=== PATIENT | female | born 1960 | race Caucasian/White ===

== ENCOUNTER → 2020-04-09 09:21 | Outpatient (CLI) | payer OTHER, SELFPAY ==
--- NOTE | ~2020-04-09 | MM_ITS ---
EXAMINATION: MM screening [facility] BI w lucinda HISTORY: Screening mammogram TECHNIQUE: Craniocaudal and mediolateral oblique 3-D tomosynthesis images were obtained and synthetic 2-D images were generated. CAD analysis was submitted and interpreted. COMPARISON: 02/20/2019, 01/17/2018, 12/07/2016 bilateral digital screening mammogram examinations BREAST PARENCHYMAL COMPOSITION: There are scattered areas of fibroglandular density. FINDINGS: There is no evidence of suspicious mass, calcification, or architectural distortion to sugg est malignancy in either breast. There has been no suspicious interval change. IMPRESSION: 1. No mammographic evidence of malignancy. 2. Recommend routine screening mammography in one year. BI-RADS Category 1: Negative Reviewed, dictated and finalized at location A. ED STRAND OPERATOR
== END ==
PROVIDERS: Visit Provider Nurse Practitioner
DX: Z12.31 Encounter for screening mammogram for malignant neoplasm of breast (principal)
CPT/HCPCS: 77063; 77067

== ENCOUNTER → 2020-04-29 03:22 | Outpatient (CLI) | payer OTHER, SELFPAY ==
[2020-04-29 18:10] LABS: SARS-CoV-2 RNA PCR Negative
== END ==
PROVIDERS: PCP Internal Medicine; Visit Provider Obstetrics & Gynecology Gynecology
DX: Z01.812 Encounter for preprocedural laboratory examination (principal); Z20.822 Contact with and (suspected) exposure to COVID-19
CPT/HCPCS: C9803; U0003; U0005

== ENCOUNTER 2020-05-02 01:24 | Day surgery (SDC) | payer OTHER, SELFPAY ==
[2020-04-26 13:59] VITALS: BMI 29.2
--- NOTE | 2020-05-02 07:39 | P.HP_ITS ---
History of Present Illness History of Present Illness Consent: Risks, benefits, and alternatives have been discussed and questions answered. Patient agrees to proceed with procedure. Chief complaint: ANDRE III Narrative: Natali Soto is a 59 year old female with severe dysplasia on cervical biopsy and ECC. Due to cervical anatomy, plan LEEP in OR under sedation. Risks of infection, bleeding, persistent and recurrent disease reviewed. Patient agrees to proceed. [facility] Past Medical History Medical History (Updated 05/02/20 @ 08:01 by Bhumika David MD) Chicken pox History of measles, mumps, or rubella Hypertension Migraine Status post hysteroscopy Surgical History Surgical History (Updated 05/02/20 @ 07:58 by Bhumika David MD) H/O adenoidectomy H/O section History of appendectomy History of tonsillectomy S/P tubal ligation Family History Family History (Updated 03/27/19 @ 08:01 by Michelle Lance CMA) Father Heart disease Hypertension Congestive heart failure Mother Cancer of neck Oral cancer Social History Social History (Updated 03/27/19 @ 08:02 by Michelle Lance CMA) Smoking status: Never smoker Alcohol intake: current Living arrangements: alone Gender identity (if verbalized by the patient): Female Spiritual care concerns: No Meds Home Medications and Allergies Home Medications Medication Instructions Recorded Confirmed Type aspirin 81 mg tablet,delayed 81 mg PO DAILY 04/22/20 04/26/20 History release cholecalciferol (vitamin D3) 50 50 mcg PO DAILY 04/22/20 04/26/20 History mcg (2,000 unit) capsule losartan 50 mg tablet 50 mg PO DAILY #90 tablet 04/22/20 04/26/20 Rx Allergies Allergy/AdvReac Type Severity Reaction Status Date / Time No Known Allergies Allergy Verified 04/26/20 14:01 Exam Const: General: cooperative, healthy appearing and comfortable : External Female Exam: normal external appearance Speculum Exam - Vagina: vagina atrophic Speculum Exam - Cervix: Cervical lesion present (7-11 lesion noted with colpo-upper half with AWE and mosaic pattern) Bimanual exam- vagina & uterus: normal bimanual exam Bimanual Exam- Adnexa, other: normal adnexae Assessment and Plan Assessment and plan (1) Severe cervical dysplasia: Code(s): 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
--- NOTE | 2020-05-02 07:39 | WPDHPUPDATE1 ---
History and Physical Update Update Date/Time: 05/02/20 07:39 History and Physical has been reviewed, including an updated exam of the patient. There are NO changes in the patient's condition. Risks, benefits, and alternatives have been discussed and questions answered. Patient agrees to proceed with procedure.
[2020-05-02 08:48] VITALS: BP 141/73; PULSE 61; RESP 20; TEMP 36.4; O2SAT 100
--- NOTE | 2020-05-02 09:03 | ECG_ITS ---
Measurements Intervals [place] Rate: 60 P: 24 OR: 144 QRS: -5 QRSD: 89 T: 52 QT: 428 QTc: 428 Interpretive Statements SINUS RHYTHM NORMAL ECG Electronically Signed On 05-02-2020 9:31:12 TEST DATA DEVELOPER by Josué Byers D.O.
--- NOTE | 2020-05-02 09:34 | WPDANESEPPF ---
Anes - Initial Pre Proc Eval Procedure: Operation Date: 05/02/20 10:30 Proposed Procedures p Loop Electrical Excision Procedure - Bhumika David MD Date/Time: 05/02/20 09:34 Surgeon: Bhumika David MD Pre Op Diagnosis: ANDRE III Patient Data Age: 59 Gender: F Height: 5 ft 7.5 in Weight: 87.6 kg Last Vital Signs Temp 36.4 C 05/02/20 08:48 Pulse 61 05/02/20 08:48 Resp 20 05/02/20 08:48 BP 141/73 H 05/02/20 08:48 Pulse Ox 100 05/02/20 08:48 Allergies Allergy/AdvReac Type Severity Reaction Status Date / Time No Known Allergies Allergy Verified 04/26/20 14:01 Home Medications Medication Instructions Recorded Confirmed Type aspirin 81 mg tablet,delayed 81 mg PO DAILY 04/22/20 04/26/20 History release cholecalciferol (vitamin D3) 50 50 mcg PO DAILY 04/22/20 04/26/20 History mcg (2,000 unit) capsule losartan 50 mg tablet 50 mg PO DAILY #90 tablet 04/22/20 04/26/20 Rx Patient hx anesthesia problems: none Family hx anesthesia problems: none PMFSH Past Medical History Medical History (Updated 05/02/20 @ 08:01 by Bhumika David MD) Chicken pox History of measles, mumps, or rubella Hypertension Migraine Status post hysteroscopy Surgical History Surgical History H/O adenoidectomy H/O section History of appendectomy History of tonsillectomy S/P tubal ligation Family History Family History Father Heart disease Hypertension Congestive heart failure Mother Cancer of neck Oral cancer Social History Social History Smoking status: Never smoker Alcohol intake: current Living arrangements: alone Gender identity (if verbalized by the patient): Female Spiritual care concerns: No Anes - Eval Final PreProcedure Day of Procedure 05/02/20 09:34 Patient weight: overweight Heart: regular rate and rhythm Lungs: clear to auscultation Airway: Mallampati scale class II Neurological: alert and oriented Last oral intake: >/= 8 hours ASA classification: II Emergent: no Anesthetic plan: proceed Anesthesia type and monitoring: general GIVS and standard monitoring Informed Consent: The patient's anesthetic plan and its attendant risks and benefits were discussed with the patient/family/POA. Questions were solicited and answers provided to the satisfaction of the patient/family/POA.
[2020-05-02] MEDS: ACETAMINOPHEN 500 MG TABLET 1000 MG PO (09:40)
[2020-05-02] MEDS: LACTATED RINGERS 1,000 ML 30 ML IV CONT (09:40)
[2020-05-02] MEDS: LIDO 1%/EPINEPHRINE 1:100,000 50 ML VIAL 10 ML INFILTRATE (10:11)
--- NOTE | 2020-05-02 10:31 | PM.PROC ---
Procedure Note - Detailed Date of procedure: 05/02/20 Pre-op diagnosis: ANDRE III Post-op diagnosis: same Procedure performed: LEEP Description of procedure: The patient is taken to the operating room and placed under anesthesia in the dorsal lithotomy position. She is externally draped. The Graves speculum is placed and noted to be too wide. The Muhammad speculum is placed and noted to be too short. The long coated Muhammad is placed and the cervix is visible. The sidewalls at the upper vagina are retracted with a coated sidewall retractor. In order to see the cervix fully, these speculum and retractor have to be pushed cephalad the entire time. The cervix is bathed with ascetic acid. The microscope is used to evaluate and aceto-white epithelium is still noted at approximately 9:00 a.m. The cervix is injected in each quadrant with 1% lidocaine with epinephrine. The [id number] loop is used to perform a single pass LEEP. Inspecting again with the microscope, due to the patient's anatomy I did not feel it was safe to proceed with a top hat. Monsel's was applied to the cone bed. Hemostasis was obtained. All instruments are removed. Anesthesia: MAC and local Surgeon: Bhumika David MD Estimated blood loss (mL): 25 Drains: No Packing: No Pathology: yes (LEEP with split at 1:00) Complications: No immediate complications Condition: stable Disposition: PACU Findings: upper vaginal stenosis; cervix flush with upper vagina
[2020-05-02 10:35] VITALS: BP 160/78; PULSE 78; RESP 16; O2SAT 99
[2020-05-02 10:55] VITALS: BP 126/69; PULSE 58; RESP 16; O2SAT 98
[2020-05-02 11:15] VITALS: BP 124/78; PULSE 66; RESP 16; O2SAT 100
== END 2020-05-02 11:35 | disposition home or self-care (01) ==
PROVIDERS: PCP Internal Medicine; Visit Provider Obstetrics & Gynecology Gynecology
PROC: 0UBC7ZZ Excision of Cervix, Via Natural or Artificial Opening (ICD-10-PCS; CPT 57522; principal; 2020-05-02 10:30)
DX: N87.1 Moderate cervical dysplasia (principal); I10 Essential (primary) hypertension
CPT/HCPCS: 57522; 88305; 93005; A9270; C9803; J2250; J2704; J3010; J7120; U0003; U0005

== ENCOUNTER 2021-01-25 13:01 | Emergency (ER) | payer OTHER, SELFPAY ==
--- NOTE | ~2021-01-25 | XR_ITS ---
EXAMINATION: XR forearm LT 2V EXAM DATE: 01/25/2021 13:31 INDICATION: Initial encounter following injury, with pain of the left forearm. TECHNIQUE: Left forearm frontal and lateral projections obtained and reviewed. There is no prior rylan dy for comparison. FINDINGS: Acute closed posttraumatic nondisplaced fracture through the left radial neck. Evidence of elbow joint effusion. This finding has been indicated, marked on the examination for review, clinical correlation. Shafts of the radius and ulna are unremarkable. IMPRESSION: Acute nondisplaced left radial neck fracture. Reviewed, dictated and finalized at location A.
--- NOTE | ~2021-01-25 | XR_ITS ---
EXAMINATION: XR ankle RT min 3V DATE: 01/25/2021 13:31 INDICATION: Right ankle pain post fall TECHNIQUE: Anteroposterior, oblique, mortise, and lateral views of the right ankle were obtained. COMPARISON: None. FINDINGS: Any flake-like avulsion fracture along the tip of the lateral malleolus. Alignment remains otherwise normal with a congruent ankle mortise. No other fractures identified. Joint spaces are normal. No rti dent ankle joint effusion. Soft tissue swelling about the lateral malleolus. IMPRESSION: 1. Tiny minimally distracted flake-like avulsion fracture at the tip of the lateral malleolus which i s generally treated conservatively as a lateral ankle sprain. Reviewed, dictated and finalized at location A. IMPRESSION: 1. Tiny minimally distracted flake-like avulsion fracture at the tip of the lat eral malleolus which is generally treated conservatively as a lateral ankle spr ain.
[2021-01-25 13:09] VITALS: BP 152/83; PULSE 74; RESP 16; TEMP 36.4; O2SAT 100
--- NOTE | 2021-01-25 14:03 | ED.FALL ---
HPI - Fall General Chief Complaint: Fall Stated Complaint: FALL/HEAD/ANKLE AND ARM INJURY Time Seen by Provider: 01/25/21 13:09 Source: patient and RN notes reviewed Mode of arrival: ambulatory Limitations: no limitations History of Present Illness HPI Narrative: Patient presents today complaining of right ankle pain, left forearm pain, and left holiness pain after falling when she tripped on the edge of a sidewalk around 1240 this afternoon. She struck her head on the ground. Denies loss of consciousness. Denies nausea, vision changes, neck pain, headache. She reports localized pain in her left holiness. Takes 81 mg aspirin daily. She reports some pain in her left forearm and mild tingling in her lower hand. Patient is least concerned about her right ankle. She reports some mild pain with range of motion. She has tried no [id number]-[id number]-[id number] interventions prior to arrival. MD complaint: fall Related Data Home Medications Medication Instructions Recorded Confirmed aspirin 81 mg tablet,delayed 81 mg PO DAILY 04/22/20 05/02/20 release cholecalciferol (vitamin D3) 50 50 mcg PO DAILY 04/22/20 05/02/20 mcg (2,000 unit) capsule Allergies Allergy/AdvReac Type Severity Reaction Status Date / Time No Known Allergies Allergy Verified 05/02/20 09:37 Review of Systems Review of Systems: CONSTITUTIONAL: Denies body aches, fever, chills, or sweats. EYES: Denies visual changes, redness, or discharge. ENT: Denies rhinorrhea, congestion, sore throat, or otalgia. CARDIOVASCULAR: Denies chest pain, palpitations, or edema. RESPIRATORY: Denies cough or dyspnea. GASTROINTESTINAL: Denies abdominal pain, nausea, vomiting, or diarrhea. GENITOURINARY: Denies dysuria or hematuria. SKIN: Denies rash, itching, or wounds. MUSCULOSKELETAL: Denies back pain, or myalgia.+ Left forearm pain, right ankle pain, left holiness pain NEUROLOGIC: Denies headache, numbness, tingling, or weakness. PSYCH: Denies depression or anxiety. [facility] Past Medical History Medical History Chicken pox History of measles, mumps, or rubella Hypertension Migraine Status post hysteroscopy Surgical History Surgical History H/O adenoidectomy H/O section History of appendectomy History of tonsillectomy S/P tubal ligation Family History Family History Father Heart disease Hypertension Congestive heart failure Mother Cancer of neck Oral cancer Social History Social History Smoking status: Never smoker Alcohol intake: current Alcohol use details: occasionally Gender identity (if verbalized by the patient): Female Spiritual care concerns: No Comments At time of signature, I have reviewed and agree with nursing past medical, surgical, social and family history unless otherwise noted. Please see nursing chart for further information. There is no relevant family history pertinent to the presenting complaint Exam Narrative: GENERAL: Well-appearing, well-nourished, and in no acute distress. HEAD: Normocephalic. + Contusion to the left holiness with tenderness to palpation EYES: EOMI. PERRL. No redness or drainage. Conjunctivae normal. ENT: Mucous membranes pink and moist. NECK: Normal AROM. CHEST: No respiratory distress. Clear to auscultation. HEART: Regular rate and rhythm. No murmur appreciated. Normal peripheral pulses. EXTREMITIES: Left forearm: Tenderness to the distal radius. No edema or ecchymosis noted. Pain in the proximal forearm with pronation and supination. Distal sensation intact. Capillary refill normal. Radial pulse normal. Right ankle: Tenderness and moderate edema to the lateral malleolus with some mild ecchymosis. Distal sensation intact. Capillary refill normal. Pedal p
== END 2021-01-25 14:35 | disposition short-term general hospital (02) ==
PROVIDERS: Emergency Provider Nurse Practitioner; PCP Internal Medicine
DX: S52.135A Nondisplaced fracture of neck of left radius, initial encounter for closed fracture (principal); S82.61XA Displaced fracture of lateral malleolus of right fibula, initial encounter for closed fracture; S09.90XA Unspecified injury of head, initial encounter; W18.09XA Striking against other object with subsequent fall, initial encounter; I10 Essential (primary) hypertension; Z79.82 Long term (current) use of aspirin
CPT/HCPCS: 29105; 73090; 73610; 99214; A4565; G0463

== ENCOUNTER 2021-01-25 14:47 | Emergency (ER) | payer OTHER, SELFPAY ==
--- NOTE | ~2021-01-25 | CT_ITS ---
EXAMINATION: CT brain wo con DATE: 01/25/2021 18:46 INDICATION: Minor head trauma TECHNIQUE: Computed tomography (CT) of the head was performed without intravenous contrast. The mA wa s adjusted according to patient size. Iterative reconstruction technique was employed. Exam dose: 60 5.33 mGy-cm total exam DLP. COMPARISON: None FINDINGS: No intracranial mass lesion or hemorrhage or cerebrovascular accident is detected. No midli ne shift or mass effect. Cerebral atherosclerosis no: Prominent bilateral carotid siphon internal car otid artery calcifications and bilateral vertebral artery calcification. There is nonspecific diminis hed attenuation cerebral white matter, likely due to chronic small vessel ischemic changes.. Normal v entricular size. No subdural or epidural hematoma. No fracture or bone destruction of the cranial vault. The mastoid air cells and included paranasal si nuses are normally developed and aerated. IMPRESSION: No skull fracture or acute intracranial abnormality Cerebral atherosclerosis Reviewed, dictated and finalized at Location A. Reviewed, dictated and finalized at location A.
--- NOTE | ~2021-01-25 | XR_ITS ---
XR_[id number]_CR DATE: 01/25/2021 18:58 INDICATION: Fall. Lower left anterior and axillary rib pain TECHNIQUE: AP chest. 3 views of the left ribs. COMPARISON: None FINDINGS: Normal heart size. No hilar or mediastinal enlargement. No pulmonary infiltrate or consolid ation, pleural effusion or pulmonary vascular congestion or pneumothorax. There is diffuse osteopenia. No left rib fracture or bone destruction is detected. IMPRESSION: Osteopenia; no left rib fracture is detected No active cardiopulmonary disease Reviewed, dictated and finalized at Location A. Reviewed, dictated and finalized at location A.
[2021-01-25 17:15] VITALS: BP 148/80; PULSE 62; RESP 16; TEMP 36.9; O2SAT 99
--- NOTE | 2021-01-25 19:27 | ED.HEATRA ---
HPI - Head Injury General Chief complaint: Head Injury Stated complaint: head injury/fall Time Seen by Provider: 01/25/21 18:19 History of Present Illness HPI Narrative: Patient is a 60-year-old female who presents ER after referral from an urgent care. Patient had a trip and fall and suffered a fracture to her left wrist no avulsion fracture to her ankle. She struck her head but did not lose consciousness. She struck her head on the curb. There is no change in vision or hearing. No nausea or vomiting. No throbbing headache. She does take baby aspirin. Patient is also reporting left anterior chest wall pain from her fall. She has some pain when she takes a deep breath. She is concerned she may have broken a rib. No difficulty breathing. Related Data Home Medications Medication Instructions Recorded Confirmed aspirin 81 mg tablet,delayed 81 mg PO DAILY 04/22/20 05/02/20 release cholecalciferol (vitamin D3) 50 50 mcg PO DAILY 04/22/20 05/02/20 mcg (2,000 unit) capsule Allergies Allergy/AdvReac Type Severity Reaction Status Date / Time No Known Allergies Allergy Verified 05/02/20 09:37 Review of Systems Review of Systems: All systems reviewed & are unremarkable except as noted in HPI and below Constitutional: Constitutional: Denies chills, Denies fever(s) and Denies weakness Eyes: Eyes: Denies change in vision Cardiovascular: Cardiovascular: Reports chest pain (chest wall), Denies rapid heart rate and Denies radiating jaw, neck or arm pain Respiratory: Respiratory: Denies cough, Denies dyspnea and Denies wheezing Musculoskeletal: Musculoskeletal: Reports arthralgias and Reports joint swelling Neurologic: Denies syncope, Denies headache(s), Denies focal weakness and Denies numbness [facility] Past Medical History Medical History Chicken pox History of measles, mumps, or rubella Hypertension Migraine Status post hysteroscopy Surgical History Surgical History H/O adenoidectomy H/O section History of appendectomy History of tonsillectomy S/P tubal ligation Family History Family History Father Heart disease Hypertension Congestive heart failure Mother Cancer of neck Oral cancer Social History Social History Smoking status: Never smoker Alcohol intake: current Alcohol use details: occasionally Gender identity (if verbalized by the patient): Female Spiritual care concerns: No Exam Narrative: GENERAL: Well-appearing, well-nourished, and in no acute distress. HEAD: Normocephalic, atraumatic. EYES: PERRLA and EOMI. CHEST: Clear to auscultation. No respiratory distress. TTP left anterior chest inferior to the breast. HEART: Regular rate and rhythm. Normal peripheral pulses. ABDOMEN: Soft, nontender, nondistended. EXTREMITIES: LUE in sling, RLE with ankle wrap. SKIN: Warm, dry, no rash. NEURO: Alert and oriented x3. PSYCH: Normal mood and affect. Course Course Emergency Course: Patient in formed of results. D/c home. Vital Signs Vital signs: Vital Signs Temperature 98.5 F 01/25/21 17:15 Pulse Rate 62 01/25/21 17:15 Respiratory Rate 16 01/25/21 17:15 Blood Pressure 148/80 H 01/25/21 17:15 Pulse Oximetry 99 01/25/21 17:15 Temperature 98.5 F 01/25/21 17:15 Pulse Rate 62 01/25/21 17:15 Respiratory Rate 16 01/25/21 17:15 Blood Pressure 148/80 H 01/25/21 17:15 Pulse Oximetry 99 01/25/21 17:15 MDM - Head Injury Imaging Data Radiologist's impression: ITS Impressions Head CT 01/25/21 19:12 IMPRESSION: No skull fracture or acute intracranial abnormality Cerebral atherosclerosis Ribs w/Chest X-Ray 01/25/21 19:18 IMPRESSION: Osteopenia; no left rib fracture is detect
[2021-01-25 20:03] VITALS: BP 154/82; PULSE 72; RESP 16; O2SAT 97
[2021-01-25] MEDS: HYDROcodone/acetaminophen (*CRX) 5-325 MG TABLET 1 TAB PO (20:08)
== END 2021-01-25 20:19 | disposition home or self-care (01) ==
PROVIDERS: Emergency Provider Emergency Medicine; PCP Internal Medicine
DX: R07.89 Other chest pain (principal); I10 Essential (primary) hypertension
CPT/HCPCS: 70450; 71101; 73090; 73610; 99284; A4565; A9270

== ENCOUNTER → 2021-05-31 15:09 | Outpatient (CLI) | payer OTHER, SELFPAY ==
--- NOTE | ~2021-05-31 | MM_ITS ---
EXAMINATION: MM screening [facility] BI w lucinda HISTORY: Screening TECHNIQUE: Craniocaudal and mediolateral oblique 3-D tomosynthesis images were obtained and synthetic 2-D images were generated. CAD analysis was submitted and interpreted. COMPARISON: Comparison to multiple prior studies sequentially, with oldest reviewed study dated 10/14. BREAST PARENCHYMAL COMPOSITION: There are scattered areas of fibroglandular density. FINDINGS: There is no evidence of suspicious mass, calcification, or architectural distortion to sugg est malignancy in either breast. There has been no suspicious interval change. IMPRESSION: 1. No mammographic evidence of malignancy. 2. Recommend routine screening mammography in one year. BI-RADS Category 1: Negative Reviewed, dictated and finalized at location A. RNS CLERK
== END ==
PROVIDERS: Visit Provider Obstetrics & Gynecology Gynecology
DX: Z12.31 Encounter for screening mammogram for malignant neoplasm of breast (principal)
CPT/HCPCS: 77063; 77067

== ENCOUNTER → 2021-09-28 10:16 | Outpatient (CLI) | payer OTHER, SELFPAY ==
--- NOTE | ~2021-09-28 | DEXA_ITS ---
Bone Density Report Name: SHAYE ONEIL Age: 61 Sex: Female Ethnicity: White Date of : 1960 Indication: osteopenia; prior fracture; hysterectomy; postmenopausal Referring Provider: [facility] Study: Bone densitometry was performed. Exam Date: September 28, 2021 Accession number: [id number] Bone Density: Region BMD T-score Z-score Classification AP Spine (L1-L4) 0.985 -0.6 1.1 Normal Femoral Neck (Left) 0.742 -1.0 0.5 Normal Total Hip (Left) 0.857 -0.7 0.4 Normal Femoral Neck (Right) 0.745 -0.9 0.5 Normal Total Hip (Right) 0.865 -0.6 0.5 Normal Total Hip Mean 0.861 -0.7 0.5 Normal World Health Organization criteria for BMD impression classify patients as: Normal (T-score at or above -1.0), Osteopenia (T-score between -1.0 and -2.5), or Osteoporosis (T-score at or below -2.5). 10-year Fracture Risk: FRAX not reported because: All T-scores for Spine Total, Hip Total, Femoral Neck at or above -1.0 Previous Exams: Region Exam Age BMD T-score BMD Change BMD Change Date g/cm2 vs Baseline vs Previous AP Spine(L1-L4) 09/28/2021 61 0.985 -0.6 -0.025* 0.030* 02/20/2019 58 0.956 -0.8 -0.055* -0.032* 10/15/2015 55 0.987 -0.5 -0.023* 0.018 12/07/2011 51 0.969 -0.7 -0.041* -0.041* 06/21/2008 47 1.010 -0.3 Total Hip(Left) 09/28/2021 61 0.857 -0.7 -0.014 0.036* 02/20/2019 58 0.821 -1.0 -0.050* -0.015 10/15/2015 55 0.837 -0.9 -0.035* -0.070* 12/07/2011 51 0.907 -0.3 0.035* 0.035* 06/21/2008 47 0.872 -0.6 Total Hip(Right) 09/28/2021 61 0.865 -0.6 0.014 0.053* 02/20/2019 58 0.812 -1.1 -0.039* -0.019 10/15/2015 55 0.830 -0.9 -0.020 -0.064* 12/07/2011 51 0.895 -0.4 0.044* 0.044* 06/21/2008 47 0.851 -0.7 *Denotes significance at 95% confidence level, LSC for AP Spine = 0.022 g/cm2, LSC for Total Hip = 0.027 g/cm2 Clinical Information Provided by Patient: Has had a low trauma fracture Has used the following medications: Vitamin D Has the following medical conditions: Hysterectomy Patient maximum height was 67.5 Menopause Age: 44 No regular weight bearing exercise Does not regularly consume dairy products Drinks caffeinated beverages Onset of menses at age 11 Number of children 2
== END ==
PROVIDERS: PCP Internal Medicine; Visit Provider Nurse Practitioner
DX: Z78.0 Asymptomatic menopausal state (principal)
CPT/HCPCS: 77080

== ENCOUNTER 2022-06-22 10:32 | Outpatient (CLI) | payer OTHER, SELFPAY ==
[2022-06-22 18:41] LABS: Basophils Absolute Auto 0.1 K/mm3 (0.0-0.1); Basophils Percent Auto 1.1 % (0.2-1.2); Eosinophils Absolute Auto 0.2 K/mm3 (0-0.3); Eosinophils Percent Auto 2.4 % (0-4.4); Hematocrit 45.6 % (37.0-47.0); Hemoglobin 14.7 g/dL (12.0-15.0); Immature Granulocyte Absolute 0.01 K/mm3 (0.00-0.031); Immature Granulocyte Percent A 0.1 % (0-0.5); Lymphocytes Absolute Auto 2.34 K/mm3 (0.9-3.2); Lymphocytes Percent Auto 32.9 % (18.3-44.2); Mean Corpuscular HGB Conc 32.2 g/dl (32-36); Mean Corpuscular Hemoglobin 29.2 pg (26-34); Mean Corpuscular Volume 90.7 fl (80-100); Mean Platelet Volume 10.8 fl (7.4-10.4); Monocytes Absolute Auto 0.7 K/mm3 (0.1-0.6); Monocytes Percent Auto 9.6 % (2.6-8.5); Neutrophils Absolute Auto 3.8 K/mm3 (1.3-6.7); Neutrophils Percent Auto 53.9 % (45.5-73.1); Platelet Count Result 296 k/mm3 (150-375); Red Blood Count 5.03 M/mm3 (4.2-5.4); Red Cell Distribution Width 13.6 % (11.5-14.5); White Blood Count 7.1 K/mm3 (4.5-10.0)
[2022-06-22 19:00] LABS: Alanine Aminotransferase 102 U/L (6-35); Albumin Level 4.6 g/dL (3.5-5.1); Alkaline Phosphatase 142 U/L (38-126); Anion Gap 7 mmol/L (8-16); Aspartate Amino Transferase 58 U/L (14-36); Bilirubin,Total 0.5 mg/dL (0.2-1.3); Blood Urea Nitrogen 15 mg/dL (7-17); Calcium 9.4 mg/dL (8.4-10.2); Carbon Dioxide 28 mmol/L (22-30); Chloride 104 mmol/L (98-107); Cholesterol 216 mg/dL (0-200); Estimated Glomerular Filt Rate > 60; Glucose 79 mg/dL (65-110); HDL Direct 52 mg/dL; Potassium 4.3 mmol/L (3.4-5.0); Sodium 139 mmol/L (137-145); Triglycerides 139 mg/dL (<150)
[2022-06-22 19:28] LABS: Thyroid Stimulating Hormone 0.029 uIU/mL (0.465-4.680)
[2022-06-22 19:55] LABS: LDL Cholesterol Direct 114 mg/dL
== END 2022-06-22 10:33 | disposition home or self-care (01) ==
LOC: ANHGOSHLAB 10:33
PROVIDERS: PCP Internal Medicine; Visit Provider Nurse Practitioner
DX: E78.5 Hyperlipidemia, unspecified (principal); I10 Essential (primary) hypertension; R21 Rash and other nonspecific skin eruption
CPT/HCPCS: 36415; 80053; 80061; 84443; 85025

== ENCOUNTER 2022-07-27 08:41 | Outpatient (CLI) | payer OTHER, SELFPAY ==
[2022-07-28 08:44] LABS: Alanine Aminotransferase 35 U/L (6-35); Albumin Level 4.5 g/dL (3.5-5.1); Alkaline Phosphatase 109 U/L (38-126); Anion Gap 6 mmol/L (8-16); Aspartate Amino Transferase 45 U/L (14-36); Bilirubin,Total 0.6 mg/dL (0.2-1.3); Blood Urea Nitrogen 20 mg/dL (7-17); Calcium 9.3 mg/dL (8.4-10.2); Carbon Dioxide 29 mmol/L (22-30); Chloride 104 mmol/L (98-107); Estimated Glomerular Filt Rate > 60; Glucose 84 mg/dL (65-110); Potassium 4.6 mmol/L (3.4-5.0); Sodium 139 mmol/L (137-145)
[2022-07-28 09:04] LABS: Thyroid Stimulating Hormone 0.019 uIU/mL (0.465-4.680)
== END 2022-07-27 08:42 | disposition home or self-care (01) ==
LOC: ANHGOSHLAB 08:42
PROVIDERS: PCP Internal Medicine; Visit Provider Nurse Practitioner
DX: R74.01 Elevation of levels of liver transaminase levels (principal); E05.90 Thyrotoxicosis, unspecified without thyrotoxic crisis or storm
CPT/HCPCS: 36415; 80053; 84443

== ENCOUNTER → 2022-08-10 10:19 | Outpatient (CLI) | payer OTHER, SELFPAY ==
--- NOTE | ~2022-08-10 | MM_ITS ---
EXAMINATION: MM screening [facility] BI w lucinda HISTORY: Screening mammogram TECHNIQUE: Craniocaudal and mediolateral oblique 3-D tomosynthesis images were obtained and synthetic 2-D images were generated. CAD analysis was submitted and interpreted. COMPARISON: 05/31/2021, 04/09/2020, 02/20/2019 BREAST PARENCHYMAL COMPOSITION: There are scattered areas of fibroglandular density. FINDINGS: No suspicious mass, calcification, or architectural distortion are identified in either mitra ast to suggest malignancy. There has been no suspicious interval change. IMPRESSION: 1. No mammographic evidence of malignancy. 2. Recommend routine screening mammography in one year. BI-RADS Category 1: Negative Reviewed, dictated and finalized at location A.
== END ==
PROVIDERS: PCP Internal Medicine; Visit Provider Obstetrics & Gynecology Gynecology
DX: Z12.31 Encounter for screening mammogram for malignant neoplasm of breast (principal)
CPT/HCPCS: 77063; 77067

== ENCOUNTER → 2022-09-17 11:48 | Outpatient (CLI) | payer OTHER, SELFPAY ==
--- NOTE | ~2022-09-17 | US_ITS ---
EXAMINATION: US thyroid DATE: 09/17/2022 12:22 INDICATION: Abnormal thyroid function test TECHNIQUE: Multiple ultrasound images of the thyroid were obtained. COMPARISON: None. FINDINGS: The right thyroid lobe measures 4.6 x 1.5 x 1.2 cm. The left thyroid lobe measures 4.2 x 0.9 x 1.2 c m. There is heterogeneous echogenicity with coarsened echotexture throughout the thyroid. There is n ormal vascularity throughout the thyroid on color Doppler. There are couple small solid, hypoechoic, wider than tall nodules with smooth well-defined margins and without internal echogenic foci (TI-RADS 4, moderately suspicious , FNA if >=1.5 cm, annual followup is >=1 cm), the largest on the left zenaida uring 8 mm and 7 mm maximal diameter and the smallest in the right thyroid lobe measures 4 mm in maxi mal diameter. IMPRESSION: 1. Three subcentimeter TI RADS 4 thyroid nodules which remain below size criteria for recommendation of either biopsy or follow-up. Reviewed, dictated and finalized at location A. IMPRESSION: 1. Three subcentimeter TI RADS 4 thyroid nodules which remain below size criter ia for recommendation of either biopsy or follow-up.
== END ==
PROVIDERS: PCP Internal Medicine; Visit Provider Internal Medicine
DX: R94.6 Abnormal results of thyroid function studies (principal)
CPT/HCPCS: 76536

== ENCOUNTER → 2023-01-08 11:15 | Outpatient (CLI) | payer OTHER, SELFPAY ==
--- NOTE | ~2023-01-08 | XR_ITS ---
XR tibia fibula LT 2V DATE: 01/08/2023 11:31 INDICATION: Fall 4 years ago. Anterior knee pain. TECHNIQUE: AP and lateral views COMPARISON: None FINDINGS: No fracture or dislocation, periosteal reaction or bone destruction. Normal alignment at th e knee and ankle joints. IMPRESSION: Negative Reviewed, dictated and finalized at location L. IMPRESSION: Negative
--- NOTE | ~2023-01-08 | XR_ITS ---
XR knee LT 3V DATE: 01/08/2023 11:30 INDICATION: Fall 4 years ago. Anterior knee pain. TECHNIQUE: AP, lateral and sunrise views COMPARISON: None FINDINGS: There is minimal periarticular spurring of the patella and slight periarticular spurring at the medial and lateral compartments. Joint spaces appear well preserved. No fracture or dislocation or joint effusion, radiopaque intra-articular loose body or chondral calci nosis is detected. No periosteal reaction or bone destruction. IMPRESSION: Mild osteoarthritis Reviewed, dictated and finalized at location L. IMPRESSION: Mild osteoarthritis
== END ==
PROVIDERS: PCP Nurse Practitioner; Visit Provider Nurse Practitioner
DX: M17.12 Unilateral primary osteoarthritis, left knee (principal); W19.XXXA Unspecified fall, initial encounter
CPT/HCPCS: 73562; 73590

== ENCOUNTER 2023-04-23 11:02 | Outpatient (CLI) | payer OTHER, SELFPAY ==
[2023-04-23 14:32] LABS: Alanine Aminotransferase 35 U/L (6-35); Albumin Level 4.4 g/dL (3.5-5.1); Alkaline Phosphatase 111 U/L (38-126); Anion Gap 7 mmol/L (8-16); Aspartate Amino Transferase 47 U/L (14-36); Bilirubin,Total 0.6 mg/dL (0.2-1.3); Blood Urea Nitrogen 16 mg/dL (7-17); Calcium 9.7 mg/dL (8.4-10.2); Carbon Dioxide 27 mmol/L (22-30); Chloride 105 mmol/L (98-107); Estimated Glomerular Filt Rate > 60; Glucose 90 mg/dL (65-110); Potassium 4.6 mmol/L (3.4-5.0); Sodium 139 mmol/L (137-145)
[2023-04-23 14:33] LABS: Basophils Absolute Auto 0.1 K/mm3 (0.0-0.1); Eosinophils Absolute Auto 0.1 K/mm3 (0-0.3); Eosinophils Percent Auto 1.5 % (0-4.4); Hematocrit 44.4 % (37.0-47.0); Hemoglobin 14.6 g/dL (12.0-15.0); Immature Granulocyte Absolute 0.03 K/mm3 (0.00-0.031); Immature Granulocyte Percent A 0.4 % (0-0.5); Lymphocytes Absolute Auto 2.63 K/mm3 (0.9-3.2); Lymphocytes Percent Auto 32.2 % (18.3-44.2); Mean Corpuscular HGB Conc 32.9 g/dl (32-36); Mean Corpuscular Hemoglobin 29.3 pg (26-34); Mean Corpuscular Volume 89.2 fl (80-100); Mean Platelet Volume 10.7 fl (7.4-10.4); Monocytes Absolute Auto 0.7 K/mm3 (0.1-0.6); Monocytes Percent Auto 8.3 % (2.6-8.5); Neutrophils Absolute Auto 4.6 K/mm3 (1.3-6.7); Neutrophils Percent Auto 56.6 % (45.5-73.1); Platelet Count Result 329 k/mm3 (150-375); Red Blood Count 4.98 M/mm3 (4.2-5.4); Red Cell Distribution Width 13.1 % (11.5-14.5); White Blood Count 8.2 K/mm3 (4.5-10.0)
== END 2023-04-23 11:03 | disposition home or self-care (01) ==
LOC: ANHGOSHLAB 11:03
PROVIDERS: PCP Internal Medicine; Visit Provider Nurse Practitioner
DX: R53.83 Other fatigue (principal); R42 Dizziness and giddiness
CPT/HCPCS: 36415; 80053; 84443; 85025

== ENCOUNTER 2023-06-24 09:20 | Outpatient (CLI) | payer OTHER, SELFPAY ==
--- NOTE | ~2023-06-24 | XR_ITS ---
Clinical Indication: Shortness of breath PA and lateral views of the chest: Comparison: None Findings: The lungs are clear, without evidence of focal consolidation or pleural effusion. Cardiome diastinal silhouette is within normal limits. Bones and soft tissues are unremarkable. Impression: Normal chest. Reviewed, dictated and finalized at [facility]. Impression: Normal chest.
== END 2023-06-24 09:21 ==
PROVIDERS: PCP Internal Medicine; Visit Provider Nurse Practitioner
DX: R06.02 Shortness of breath (principal)
CPT/HCPCS: 71046

== ENCOUNTER 2023-07-16 08:38 | Outpatient (CLI) | payer OTHER, SELFPAY ==
--- NOTE | ~2023-07-16 | NM_ITS ---
EXAMINATION: NM santa stress w perfusion DATE: 07/16/2023 11:23 INDICATION: Other forms of dyspnea. TECHNIQUE: Rest images were obtained following intravenous administration of 9.7 mCi Tc99m tetrofosmi n (Myoview). The patient was infused intravenously with Lexiscan (regadenoson). Then, 32.5 mCi Tc99m tetrofosmin (Myoview) was administered intravenously, and stress images were obtained. Data was recon structed into short axis and horizontal and vertical long axis SPECT images. Gated SPECT images were also obtained. COMPARISON: None. FINDINGS: There is no definite reversible or fixed perfusion abnormality to suggest ischemia or infar ction. There is no segmental wall motion abnormality. Left ventricular ejection fraction measures 6 1%. IMPRESSION: 1. No definite ischemia or infarct. 2. Normal left ventricular ejection fraction measuring 61%. Reviewed, dictated and finalized at location E.
--- NOTE | 2023-07-16 09:07 | EST_ITS ---
Patient Info Name: Natali Soto Age: 62 years : 1960 Gender: Female Ht: 67 in Wt: 208 lbs BSA: 2.14 m2 HR: 57 bpm BP: 140 / 83 mmHg Heart Rhythm: Sinus Rhythm Exam Date: 07/16/2023 10:14 AM Exam Location: Echo Lab Patient Status: Outpatient Admit Date: 07/16/2023 Staff Ordering Physician: Ave Dukes NP Attending Provider: Ave Dukes NP Exercise Technologist: Nikki Thomas CT Exercise Physician: Josué Byers DO Exam Type: CA stress santa w NM Study Info Indications R06.02 - Shortness of breath A regadenoson stress test was performed. Summary 1. 1. Abnormal lexiscan stress test for ischemic ST changes by ECG criteria. 2. 2. Baseline hypertension. 3. 3. Nuclear scan to follow and will be reported separately. Please correlate with it. 4. 4. Patient informed of the above results. Protocol: Lexiscan Stress ECG Details Stage: REST Duration (min): 1 min : 35 sec HR (bpm): 58 SBP (mmHg): 140 DBP (mmHg): 83 Stage: REST Duration (min): 5 min : 16 sec HR (bpm): 61 SBP (mmHg): 140 DBP (mmHg): 83 Stage: STAGE 1 Duration (min): 0 min : 59 sec HR (bpm): 117 SBP (mmHg): 148 DBP (mmHg): 76 Stage: RECOVERY Duration (min): 1 min : 0 sec HR (bpm): 110 SBP (mmHg): 148 DBP (mmHg): 76 Stage: RECOVERY Duration (min): 2 min : 0 sec HR (bpm): 91 SBP (mmHg): 148 DBP (mmHg): 76 Stage: RECOVERY Duration (min): 2 min : 56 sec HR (bpm): 77 SBP (mmHg): 152 DBP (mmHg): 82 Rest HR: 61 bpm Peak HR: 120 bpm Rest Sys BP: 140 mmHg Peak Sys BP: 152 mmHg Max Pred HR: 156 bpm % Max Pred HR: 77 % Target HR: 133 bpm Max RPP: 18,240 bpm*mmHg Termination Reason: Completed protocol Cardiac Symptoms: Shortness of breath Total Time: 1 min : 0 sec Rest Beasley BP: 83 mmHg Peak Beasley BP: 82 mmHg Total Dose: 0.4 mg Resting ECG Sinus rhythm. Stress ECG [address] depression in inferior leads and V3-V6. Arrhythmias None. Report Signatures
== END 2023-07-16 08:39 | disposition home or self-care (01) ==
PROVIDERS: PCP Internal Medicine; Visit Provider Nurse Practitioner
DX: R06.09 Other forms of dyspnea (principal); R06.02 Shortness of breath; R42 Dizziness and giddiness
CPT/HCPCS: 78452; 93017; A9502; J2785

== ENCOUNTER 2023-08-20 14:52 | Outpatient (CLI) | payer OTHER, SELFPAY ==
--- NOTE | ~2023-08-20 | MM_ITS ---
EXAMINATION: MM screening [facility] BI w lucinda HISTORY: Screening TECHNIQUE: Craniocaudal and mediolateral oblique 3-D tomosynthesis images were obtained and synthetic 2-D images were generated. CAD analysis was submitted and interpreted. COMPARISON: Comparison to multiple prior studies sequentially, with oldest reviewed study dated 12/07. BREAST PARENCHYMAL COMPOSITION: There are scattered areas of fibroglandular density. FINDINGS: There is no evidence of suspicious mass, calcification, or architectural distortion to sugg est malignancy in either breast. There has been no suspicious interval change. IMPRESSION: 1. No mammographic evidence of malignancy. 2. Recommend routine screening mammography in one year. BI-RADS Category 1: Negative Reviewed, dictated and finalized at location B.
== END 2023-08-20 14:53 ==
PROVIDERS: PCP Obstetrics & Gynecology Gynecology; Visit Provider Obstetrics & Gynecology Gynecology
DX: Z12.31 Encounter for screening mammogram for malignant neoplasm of breast (principal)
CPT/HCPCS: 77063; 77067

== ENCOUNTER 2023-10-16 09:52 | Outpatient (CLI) | payer OTHER, SELFPAY ==
[2023-10-16 19:54] LABS: Vitamin D 25 Hydroxy 75.3 ng/mL
== END 2023-10-16 09:53 | disposition home or self-care (01) ==
LOC: ANHGOSHLAB 09:53
PROVIDERS: PCP Obstetrics & Gynecology Gynecology; Visit Provider Internal Medicine
DX: R94.6 Abnormal results of thyroid function studies (principal)
CPT/HCPCS: 36415; 82306; 84439; 84443; 84480

== ENCOUNTER 2025-01-12 11:36 | Outpatient (CLI) | payer MEDICARE, SELFPAY ==
--- NOTE | ~2025-01-12 | MM_ITS ---
EXAMINATION: MM screening [facility] BI w lucinda HISTORY: Screening TECHNIQUE: Craniocaudal and mediolateral oblique 3-D tomosynthesis images were obtained and synthetic 2-D images were generated. CAD analysis was submitted and interpreted. COMPARISON: Comparison to multiple prior studies sequentially, with oldest reviewed study dated 01/17/2018. BREAST PARENCHYMAL COMPOSITION: Not dense: There are scattered areas of fibroglandular density. FINDINGS: There is no evidence of suspicious mass, calcification, or architectural distortion to suggest malignancy in either breast. There has been no suspicious interval change. IMPRESSION: 1. No mammographic evidence of malignancy. 2. Recommend routine screening mammography in one year. BI-RADS Category 1: Negative Reviewed, dictated and finalized at location O.
== END 2025-01-12 11:37 | disposition home or self-care (01) ==
PROVIDERS: PCP Obstetrics & Gynecology Gynecology; Visit Provider Obstetrics & Gynecology Gynecology
DX: Z12.31 Encounter for screening mammogram for malignant neoplasm of breast (principal)
CPT/HCPCS: 77063; 77067

== ENCOUNTER 2025-01-12 11:50 | Outpatient (CLI) | payer MEDICARE, SELFPAY ==
--- NOTE | ~2025-01-12 | US_ITS ---
EXAMINATION: US thyroid DATE: 01/12/2025 12:20 INDICATION: Abnormal thyroid levels TECHNIQUE: Multiple ultrasound images of the thyroid were obtained. COMPARISON: 09/17/2022 FINDINGS: The right thyroid lobe measures 4.1 x 1.4 x 1.3 cm. The left thyroid lobe measures 4.5 x 1.5 x 1.0 cm. 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 Also without change in size is a second 8 mm nodule also appearing more anechoic and with posterior acoustic enhancement in the mid left thyroid lobe also consistent with a cystic TI RADS 4 nodule. There is normal echotexture, echogenicity and vascular flow throughout the remainder of the thyroid gland. IMPRESSION: 1. 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 Reviewed, dictated and finalized at location A. IMPRESSION: 1. 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
== END 2025-01-12 11:51 | disposition home or self-care (01) ==
LOC: MICIMG 11:51
PROVIDERS: PCP Internal Medicine; Visit Provider Internal Medicine
DX: R94.6 Abnormal results of thyroid function studies (principal); E55.9 Vitamin D deficiency, unspecified; I10 Essential (primary) hypertension; E66.3 Overweight; E78.2 Mixed hyperlipidemia; E66.09 Other obesity due to excess calories; E05.90 Thyrotoxicosis, unspecified without thyrotoxic crisis or storm; Z68.31 Body mass index [BMI] 31.0-31.9, adult
CPT/HCPCS: 76536